=== PATIENT | female | born 1980 | race Caucasian/White ===

== ENCOUNTER 2018-07-23 07:57 | Outpatient (CLI) | payer OTHER ==
[2018-07-23 13:05] LABS: BASOPHILS % (AUTO) 0.6 %; EOSINOPHILS # (AUTO) 0.3 10^3/uL (0.0-0.7); EOSINOPHILS % (AUTO) 4.8 %; HGB - HEMOGLOBIN 13.1 g/dL (12.0-16.0); LYMPHOCYTES # (AUTO) 2.2 10^3/uL (1.5-3.5); LYMPHOCYTES % (AUTO) 33.2 %; MEAN CORPUSCULAR HGB CONC 33.8 g/dL (32.0-36.0); MEAN CORPUSCULAR VOLUME 91.9 fL (81.0-99.0); MEAN PLATELET VOLUME 10.2 fL (7.9-10.8); MONOCYTES # (AUTO) 0.4 10^3/uL (0.0-1.0); MONOCYTES % (AUTO) 6.1 %; NEUTROPHILS # (AUTO) 3.6 10^3/uL (1.5-6.6); NEUTROPHILS % (AUTO) 55.3 %; PLT - PLATELET COUNT 217 10^3/uL (130-450); RED BLOOD COUNT 4.21 10^6/uL (4.20-5.40); WHITE BLOOD COUNT 6.5 x10^3/uL (4.8-10.8)
[2018-07-23 13:42] LABS: ALBUMIN 4.3 g/dL (3.2-5.5); ALBUMIN/GLOBULIN RATIO 1.3 (1.0-2.2); ALKALINE PHOSPHATASE 49 IU/L (42-121); ALT ALANINE AMINOTRANSFERASE 19 IU/L (10-60); AST ASPARTATE AMINOTRANSFERASE 19 IU/L (10-42); BILIRUBIN,TOTAL 1.7 mg/dL (0.2-1.0); BUN - BLOOD UREA NITROGEN 18 mg/dL (6-20); CALCIUM 9.1 mg/dL (8.5-10.3); CARBON DIOXIDE - CO2 28 mmol/L (21-32); CHLORIDE 101 mmol/L (101-111); CHOL/HDL RATIO 3.6 (<4.4); CHOLESTEROL 200 mg/dL; CREATININE 0.7 mg/dL (0.4-1.0); GFR - MDRD 94 (>89); GLUCOSE 86 mg/dL (70-100); HDL CHOLESTEROL 56 mg/dL; LDL CHOLESTEROL,CALCULATED 127 mg/dL; LDL/HDL RATIO 2.3 (<4.4); SODIUM 137 mmol/L (135-145); TOTAL PROTEIN 7.6 g/dL (6.7-8.2); VLDL CHOLESTEROL 17 mg/dL
[2018-07-23 13:58] LABS: THYROID STIMULATING HORMONE 3.27 uIU/mL (0.34-5.60)
[2018-07-23 14:25] LABS: FOLLICLE STIMULATING HORMONE 40.51 mIU/mL
[2018-07-23 14:26] LABS: LUTEINIZING HORMONE 32.1 mIU/mL
== END 2018-07-23 07:58 | disposition home or self-care (01) ==
LOC: LAB.WCP 07:57
PROVIDERS: ATTEND Physician Assistant Medical
DX: Z00.00 Encounter for general adult medical examination without abnormal findings (principal); N92.1 Excessive and frequent menstruation with irregular cycle
CPT/HCPCS: 36415; 80053; 80061; 82670; 83001; 83002; 83721; 84443; 84702; 85025

== ENCOUNTER 2018-08-06 07:13 | Outpatient (CLI) | payer OTHER ==
--- NOTE | 2018-08-06 10:17 | Ultrasound Report ---
Reason: METRORRHAGIA Procedure Date: 08/06/2018 Accession Number: [id number] / [id number] Procedure: US - Pelvic w/Transvaginal CPT Code: FULL RESULT: EXAM: PELVIC ULTRASOUND EXAM DATE: 08/06/2018 08:03 AM. CLINICAL HISTORY: Metrorrhagia. COMPARISON: None. TECHNIQUE: Realtime transabdominal pelvic scan performed to identify the uterus and adnexa and as an overview of other pelvic structures, followed by transvaginal scan to provide greater detail of the uterus and adnexa, with static image documentation. FINDINGS: Uterus: 10.5 x 3.1 x 4.6 cm, volume 79 cc. Retroverted position. Normal overall size and echotexture. Masses: None. Endometrium: 4 mm. Normal. Cervix: Nabothian cyst. Right Ovary: 2.4 x 1.8 x 2.1 cm, volume 4.7 cc. Normal echotexture and blood flow. Left Ovary: 2.5 x 1.5 x 2.4 cm, volume 4.6 cc. Normal echotexture and blood flow. Free Fluid: None. Other: None. IMPRESSION: Normal pelvic ultrasound. RADIA
== END 2018-08-06 07:14 | disposition home or self-care (01) ==
LOC: DI 07:13
PROVIDERS: ATTEND Physician Assistant Medical
DX: N92.1 Excessive and frequent menstruation with irregular cycle (principal)
CPT/HCPCS: 76830; 76856

== ENCOUNTER 2020-02-14 16:21 | Outpatient (CLI) | payer OTHER | END 2020-02-14 16:22 | disposition home or self-care (01) | LOC: COV 16:21 | PROVIDERS: ATTEND Family Medicine | DX: R50.9 Fever, unspecified (principal); M79.10 Myalgia, unspecified site; R53.83 Other fatigue; Z20.828 Contact with and (suspected) exposure to other viral communicable diseases ==

== ENCOUNTER 2020-08-30 08:52 | Outpatient (CLI) | payer OTHER ==
--- NOTE | 2020-08-31 10:49 | Mammography Report ---
BILATERAL DIGITAL SCREENING MAMMOGRAM 3D/2D: 08/30/2020 CLINICAL: Baseline exam. Routine screening. Baseline exam. No prior exams were available for comparison. The tissue of both breasts is heterogen eously dense. This may lower the sensitivity of mammography. There is a 1.3 cm oval low density focal asymmetry with an obscured and circumscribed margin in the r ight breast at 12 o'clock middle depth. Finding is seen only on tomography. No other significant masses, calcifications, or other findings are seen in either breast. IMPRESSION: INCOMPLETE: NEEDS ADDITIONAL IMAGING EVALUATION Focal asymmetry in the right breast resembles a cyst and is indeterminate. Additional views with possible ultrasound are recommended. This exam was interpreted at Station ID: [id number]. NOTE: For mammograms, a report in lay terms will be sent to the patient. Approximately 15% of breast malignancies will not be visualized mammographically. In the management of a palpable breast mass, a negative mammogram must not discourage biopsy of a clinically suspicious lesion. Electronically Signed By: Benito Gunter M.D. slc/:08/30/2020 10:22:30 ACR BI-RADS Category 0: Incomplete 3340F PARENCHYMAL PATTERN: (D) - The breast(s) demonstrate(s) heterogeneously dense fibroglandular parradhay ma. BI-RADS CATEGORY: (0) - 0 Mammo and [place] [id number] Immediate follow-up LATERALITY: (B)
== END 2020-08-30 08:53 | disposition home or self-care (01) ==
LOC: DI.N 08:52
DX: Z12.31 Encounter for screening mammogram for malignant neoplasm of breast (principal); N64.89 Other specified disorders of breast

== ENCOUNTER 2020-09-14 08:11 | Outpatient (CLI) | payer OTHER ==
--- NOTE | 2020-09-17 09:25 | Ultrasound Report ---
LIMITED ULTRASOUND OF RIGHT BREAST: 09/14/2020 CLINICAL: Short term follow up of the right breast. Comparison is made to exams dated: 09/14/2020 mammogram and 08/30/2020 mammogram - [facility]. Color flow and real-time ultrasound of the right breast 12 o'clock region were performed. Tyler scale images of the real-time examination were reviewed. There is a 1.1 cm x 0.7 cm x 0.4 cm oval mass with a circumscribed margin in the right breast at 12 o 'clock middle depth 6 cm from the nipple. This oval mass is hypoechoic with a well-defined boundary and no posterior acoustic shadowing or enhancement. This correlates with mammography findings. [place] r flow imaging demonstrates that there is no vascularity present. IMPRESSION: PROBABLY BENIGN The 1.1 cm oval mass in the right breast resembles a fibroadenoma and is probably benign. Option for biopsy for tissue diagnoses was also presented to the patient. The patient would like to f ollow with short-term interval follow-up imaging. A follow-up mammogram and an ultrasound in 6 months is recommended to demonstrate stability. Patient is advised to monitor for significant change. Clinical follow-up as needed. This exam was interpreted at Station ID: [id number]. Electronically Signed By: Benito Gunter M.D. slc/:09/14/2020 10:25:19 Ultrasound BI-RADS: 3 Probably benign BI-RADS CATEGORY: (3) - 3 Mammo and [place] [id number] 6 month follow-up LATERALITY: (B)
--- NOTE | 2020-09-17 09:25 | Mammography Report ---
UNILATERAL RIGHT DIGITAL DIAGNOSTIC MAMMOGRAM 3D/2D: 09/14/2020 CLINICAL: Patient returns today to evaluate a focal asymmetry in the right breast. Comparison is made to exam dated: 08/30/2020 mammogram - [facility]. The tissue of right breast is heterogeneously dense. This may lower the sensitivity of mammography. There is a 1.3 cm oval low density focal asymmetry with an obscured and circumscribed margin in the r ight breast at 12 o'clock middle depth. No other significant masses or calcifications are seen in the breast. IMPRESSION: INCOMPLETE: NEEDS ADDITIONAL IMAGING EVALUATION The 1.3 cm oval low density focal asymmetry in the right breast resembles a cyst and is indeterminate . A targeted ultrasound is recommended and will immediately follow. This exam was interpreted at Station ID: [id number]. NOTE: For mammograms, a report in lay terms will be sent to the patient. Approximately 15% of breast malignancies will not be visualized mammographically. In the management of a palpable breast mass, a negative mammogram must not discourage biopsy of a clinically suspicious lesion. Electronically Signed By: Benito Gunter M.D. slc/:09/14/2020 09:09:10 ACR BI-RADS Category 0: Incomplete 3340F PARENCHYMAL PATTERN: (D) - The breast(s) demonstrate(s) heterogeneously dense fibroglandular luis angel lópez. BI-RADS CATEGORY: (0) - 0 Ultrasound [id number] Immediate follow-up LATERALITY: (B)
== END 2020-09-14 08:12 | disposition home or self-care (01) ==
LOC: DI 08:11
PROVIDERS: ATTEND Physician Assistant Medical
DX: N63.15 Unspecified lump in the right breast, overlapping quadrants (principal)

== ENCOUNTER 2020-11-27 08:00 | Outpatient (CLI) | payer OTHER ==
[2020-11-27 12:47] LABS: BASOPHILS # (AUTO) 0.1 10^3/uL (0.0-0.1); BASOPHILS % (AUTO) 0.9 %; EOSINOPHILS # (AUTO) 0.2 10^3/uL (0.0-0.7); EOSINOPHILS % (AUTO) 3.9 %; HGB - HEMOGLOBIN 12.9 g/dL (12.0-16.0); LYMPHOCYTES % (AUTO) 34.9 %; MEAN CORPUSCULAR HEMOGLOBIN 29.6 pg (27.0-31.0); MEAN CORPUSCULAR HGB CONC 32.3 g/dL (32.0-36.0); MEAN CORPUSCULAR VOLUME 91.7 fL (81.0-99.0); MEAN PLATELET VOLUME 11.7 fL (7.9-10.8); MONOCYTES # (AUTO) 0.4 10^3/uL (0.0-1.0); MONOCYTES % (AUTO) 6.4 %; NEUTROPHILS % (AUTO) 53.7 %; PLT - PLATELET COUNT 221 10^3/uL (130-450); RED BLOOD COUNT 4.36 10^6/uL (4.20-5.40); RED CELL DISTRIBUTION WIDTH 11.9 % (12.0-15.0); WHITE BLOOD COUNT 5.7 x10^3/uL (4.8-10.8)
[2020-11-27 13:11] LABS: ALBUMIN 4.5 g/dL (3.2-5.5); ALBUMIN/GLOBULIN RATIO 1.4 (1.0-2.2); ALKALINE PHOSPHATASE 58 IU/L (42-121); ALT ALANINE AMINOTRANSFERASE 45 IU/L (10-60); AST ASPARTATE AMINOTRANSFERASE 31 IU/L (10-42); BILIRUBIN,TOTAL 0.7 mg/dL (0.2-1.0); BUN - BLOOD UREA NITROGEN 17 mg/dL (6-20); CALCIUM 9.2 mg/dL (8.5-10.3); CARBON DIOXIDE - CO2 27 mmol/L (21-32); CHLORIDE 105 mmol/L (101-111); CHOL/HDL RATIO 3.8 (<4.4); CHOLESTEROL 214 mg/dL; CREATININE 0.8 mg/dL (0.4-1.0); GFR - MDRD 79 (>89); GLUCOSE 91 mg/dL (70-100); HDL CHOLESTEROL 56 mg/dL; LDL CHOLESTEROL,CALCULATED 140 mg/dL; LDL/HDL RATIO 2.5 (<4.4); POTASSIUM 4.2 mmol/L (3.5-5.0); SODIUM 141 mmol/L (135-145); TOTAL PROTEIN 7.7 g/dL (6.7-8.2); TRIGLYCERIDES 90 mg/dL; VLDL CHOLESTEROL 18 mg/dL
[2020-11-27 13:22] LABS: THYROID STIMULATING HORMONE 2.1 uIU/mL (0.34-5.60)
[2020-11-27 13:28] LABS: PROLACTIN 9.89 ng/mL
[2020-11-27 13:50] LABS: FOLLICLE STIMULATING HORMONE 88.22 mIU/mL
[2020-11-28 15:41] LABS: ESTRADIOL 17 pg/mL; PROGESTERONE <0.5 ng/mL
== END 2020-11-27 23:59 | disposition home or self-care (01) ==
LOC: LAB.WCP 08:00
PROVIDERS: ATTEND Physician Assistant Medical
DX: Z00.00 Encounter for general adult medical examination without abnormal findings (principal); N91.2 Amenorrhea, unspecified
CPT/HCPCS: 36415; 80053; 80061; 82670; 83001; 83721; 84144; 84146; 84443; 85025

== ENCOUNTER 2021-05-17 09:57 | Outpatient (CLI) | payer OTHER ==
--- NOTE | 2021-05-20 13:42 | Ultrasound Report ---
LIMITED ULTRASOUND OF RIGHT BREAST: 05/17/2021 CLINICAL: Short term follow up of the right breast. Comparison is made to exam dated: [facility] Doppler ultrasound of the right breast 12 o'clock region was performed. Tyler scale images of the ena l-time examination were reviewed. There is a 1.1 cm x 0.4 cm x 0.9 cm oval mass with a circumscribed margin in the right breast at 12 o 'clock middle depth 6 cm from the nipple. This oval mass is hypoechoic with a well-defined boundary and no posterior acoustic shadowing or enhancement. This abnormality is decreased in size and less p rominent and correlates with mammography findings. Color flow imaging demonstrates that there is no vascularity present. IMPRESSION: PROBABLY BENIGN The 1.1 cm x 0.4 cm x 0.9 cm oval mass in the right breast resembles a fibroadenoma and is probably b enign. A follow-up bilateral mammogram and a right ultrasound in 6 months is recommended to demonstrate stab ility. Findings and recommendations were conveyed to the patient during today's evaluation. This exam was interpreted at Station ID: [id number]. Electronically Signed By: Toñito Dobbs M.D. aty/:05/17/2021 11:19:13 Ultrasound BI-RADS: 3 Probably benign BI-RADS CATEGORY: (3) - 3 Mammo and US [id number] 6 month follow-up LATERALITY: (B)
--- NOTE | 2021-05-20 13:42 | Mammography Report ---
UNILATERAL RIGHT DIGITAL DIAGNOSTIC MAMMOGRAM 3D/2D: 05/17/2021 CLINICAL: Patient returns for a 6 month follow up of the right breast. Comparison is made to exams dated: 09/14/2020 ultrasound, 09/14/2020 mammogram, and 08/30/2020 mammogram - [facility]. The tissue of right breast is heterogeneously dense. This may lower the sensitivity of mammography. There is a 1.1 cm oval focal asymmetry with an obscured and circumscribed margin in the right breast at 12 o'clock middle depth. This is not significantly changed. No other significant masses or calcifications are seen in the breast. IMPRESSION: INCOMPLETE: NEEDS ADDITIONAL IMAGING EVALUATION The 1.1 cm oval focal asymmetry in the right breast resembles a cyst or a fibroadenoma and is indeter minate. An ultrasound is recommended for further evaluation and is scheduled to immediately follow this exami nation. This exam was interpreted at Station ID: [id number]. NOTE: For mammograms, a report in lay terms will be sent to the patient. Approximately 15% of breast malignancies will not be visualized mammographically. In the management of a palpable breast mass, a negative mammogram must not discourage biopsy of a clinically suspicious lesion. Electronically Signed By: Toñito Dobbs M.D. aty/:05/17/2021 10:52:01 ACR BI-RADS Category 0: Incomplete 3340F PARENCHYMAL PATTERN: (D) - The breast(s) demonstrate(s) heterogeneously dense fibroglandular luis angel lópez. BI-RADS CATEGORY: (0) - 0 Ultrasound [id number] Immediate follow-up LATERALITY: (R)
== END 2021-05-17 09:58 | disposition home or self-care (01) ==
LOC: DI 09:57
PROVIDERS: ATTEND Physician Assistant Medical
DX: D24.1 Benign neoplasm of right breast (principal)

== ENCOUNTER 2022-09-25 07:46 | Outpatient (CLI) | payer OTHER ==
--- NOTE | 2022-09-25 10:10 | Mammography Report ---
UNILATERAL RIGHT DIGITAL DIAGNOSTIC MAMMOGRAM 3D/2D: 09/25/2022 CLINICAL: Short term follow up of the right breast. Comparison is made to exams dated: 01/07/2022 mammogram, 05/17/2021 mammogram, 09/14/2020 mammogram, 08/30/2020 mammogram, and 01/07/2022 ultrasound - [facility]. The right breast is heterogeneously dense, which may obscure small masses (category c / 51-75% glandu lar tissue). There is a stable oval focal asymmetry with an obscured and circumscribed margin in the right breast at 12 o'clock middle depth. There also is an oval mass in the right breast at 8 o'clock anterior depth. This is more prominent. No other significant masses or calcifications are seen in the breast. IMPRESSION: INCOMPLETE: NEEDS ADDITIONAL IMAGING EVALUATION The stable oval focal asymmetry in the right breast at 12 o'clock middle depth most likely is a fibro adenoma and is indeterminate. The oval mass in the right breast at 8 o'clock anterior depth resembles a cyst or a fibroadenoma and is indeterminate. A targeted ultrasound is recommended and will immediately follow. Based on the Tyrer Cuzick model (a risk assessment model) the patients lifetime risk is 11.2% and he r 10 year risk is 1.8%. According to the ACR, ACS, and NCCN guidelines, an annual breast MRI exam gian ng with mammogram is recommended if the patients lifetime risk is 20% or greater. This exam was interpreted at Station ID: [id number]. NOTE: For mammograms, a report in lay terms will be sent to the patient. Approximately 15% of breast malignancies will not be visualized mammographically. In the management of a palpable breast mass, a negative mammogram must not discourage biopsy of a clinically suspicious lesion. Electronically Signed By: Benito Gunter M.D. slc/:09/25/2022 08:48:37 ACR BI-RADS Category 0: Incomplete 3340F PARENCHYMAL PATTERN: (D) - The breast(s) demonstrate(s) heterogeneously dense fibroglandular parenchy ma. BI-RADS CATEGORY: (0) - 0 Ultrasound [id number] Immediate follow-up LATERALITY: (B)
--- NOTE | 2022-09-25 10:10 | Ultrasound Report ---
LIMITED ULTRASOUND OF RIGHT BREAST: 09/25/2022 CLINICAL: Patient returns today to evaluate a focal asymmetry in the right breast. Comparison is made to exams dated: 09/25/2022 mammogram, 01/07/2022 ultrasound, 01/07/2022 mammogram, ultrasound, 05/17/2021 mammogram, and 09/14/2020 ultrasound - [facility]. Color flow and real-time ultrasound of the right breast 8 o'clock and 11-12 o'clock regions were perf ormed. Tyler scale images of the real-time examination were reviewed. There is a stable benign 0.9 cm x 0.8 cm x 0.3 cm oval mass with a circumscribed margin in the right breast at 12 o'clock middle depth 6 cm from the nipple. This oval mass is hypoechoic. This correlat es with mammography findings. Color flow imaging demonstrates that there is no vascularity present. There also is a benign 0.6 cm oval simple cyst in the right breast at 8 o'clock anterior depth 6 cm f rom the nipple. This oval simple cyst is anechoic. This correlates with mammography findings. [place] r flow imaging demonstrates that there is no vascularity present. IMPRESSION: BENIGN There is no sonographic evidence of malignancy. Right breast at 12 o'clock middle depth circumscribed mass measuring 0.9 cm demonstrates long-term st ability and is benign. This is most likely a fibroadenoma. The 0.6 cm oval simple cyst in the right breast at 8 o'clock anterior depth is benign. Return to annual mammogram screening schedule is recommended. Due December 2022. Exam findings were conveyed to the patient. This exam was interpreted at Station ID: [id number]. Electronically Signed By: Benito Gunter M.D. slc/:09/25/2022 08:54:47 Ultrasound BI-RADS: 2 Benign BI-RADS CATEGORY: (2) - 2 Mammogram [id number] return to screening LATERALITY: (B)
== END 2022-09-25 07:47 | disposition home or self-care (01) ==
LOC: DI 07:46
PROVIDERS: ATTEND Physician Assistant Medical
DX: R92.8 Other abnormal and inconclusive findings on diagnostic imaging of breast (principal); N60.01 Solitary cyst of right breast